=== PATIENT | male | born 1950 | race Caucasian/White ===

== ENCOUNTER 2021-07-22 06:23 | Emergency (ER) | payer MEDICARE, OTHER ==
[2021-07-22 06:31] VITALS: BP 157/91; PULSE 89; RESP 22; TEMP 97.2
[2021-07-22] MEDS ORDERED: HYDROmorphone 1 MG/ML 1 ML SYRINGE IM STA (06:42)
[2021-07-22] MEDS ORDERED: BACITRACIN ZINC 500 UNIT/GM OINT 28.4 GM TUBE TOPICAL ONE (06:42)
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
[2021-07-22] MEDS ORDERED: DIPH,PERTUS(ACELL)TETVAC-LF 0.5 ML VIAL IM ONE (07:00)
== END 2021-07-22 07:20 | disposition home or self-care (01) ==
LOC: EC 06:23
DX: T25.231A Burn of second degree of right toe(s) (nail), initial encounter (principal); T31.0 Burns involving less than 10% of body surface; F17.200 Nicotine dependence, unspecified, uncomplicated; I10 Essential (primary) hypertension; Z88.0 Allergy status to penicillin; X10.0XXA Contact with hot drinks, initial encounter; Y93.89 Activity, other specified
CPT/HCPCS: 90715; 99283; 90471; 16020; 96372; J1170

== ENCOUNTER → 2022-03-29 | Outpatient (CLI) | payer MEDICARE, OTHER ==
--- NOTE | 2022-03-29 09:52 | US ---
EXAMINATION TYPE: US duplex aorta DATE OF EXAM: 03/29/2022 COMPARISON: NONE CLINICAL HISTORY: Z13.6 SCREENING FOR CARDIOVASCULAR DISORDERS. AAA screening TECHNIQUE: Multiple sonographic images of the abdominal aorta are obtained. FINDINGS: EXAM MEASUREMENTS: Abdominal Aorta: Proximal: 2.3 x 2.2 cm Mid: 1.7 x 2.0 cm Distal: 1.9 x 1.7 cm Bifurcation: ROSEANN: 1.2 x 1.2 cm TANISHA: 1.2 x 1.3 cm TRACER LATHE SET UP OPERATOR NOTES: No evidence of AAA IMPRESSION: No evidence of aortic aneurysm.
--- NOTE | 2022-03-29 09:54 | US ---
EXAMINATION TYPE: US kidneys/renal and bladder DATE OF EXAM: 03/29/2022 COMPARISON: NONE CLINICAL HISTORY: R94.4 ABN KIDNEY FUNCTION RESULTS. Abnormal renal function EXAM MEASUREMENTS: Right Kidney: 10.5 x 4.3 x 4.7 cm Left Kidney: 10.8 x 4.8 x 4.5 cm Right Kidney: Lobulated contour, probable cyst mid= 1.3 x 1.1 x 1.3 cm. Hypoechoic structure in the u pper pole measuring 2.2 x 1.8 x 1.8 cm Left Kidney: Lobulated contour, cyst lower pole= 4.2 x 3.3 x 3.7 cm. Hypoechoic structure within the left kidney. 1.7 x 1.5 x 1.7 cm Bladder: wnl Bilateral Jets seen: Only left jet visualized There is no evidence for hydronephrosis at this point in time. No nephrolithiasis is seen. No candida s are identified. The urinary bladder is anechoic. Bilateral ureteral jets are seen. IMPRESSION: 1. Bilateral indeterminate renal lesions which may represent a complex cyst versus solid lesion such as an renal cell carcinoma. Further evaluation with MRI with and without IV contrast is recommended. 2. Somewhat lobulated contour to the kidneys without evidence for hydronephrosis. 3. Scattered cysts.
== END | disposition home or self-care (01) ==
LOC: RADUSWWP 08:46
PROVIDERS: ATTEND Family Medicine
DX: Z13.6 Encounter for screening for cardiovascular disorders (principal); R94.4 Abnormal results of kidney function studies
CPT/HCPCS: 76770; 93979

== ENCOUNTER → 2022-04-28 | Outpatient (CLI) | payer MEDICARE, OTHER ==
--- NOTE | 2022-04-28 12:30 | MR ---
EXAMINATION TYPE: MR abdomen wo/w con DATE OF EXAM: 04/28/2022 COMPARISON: Renal ultrasound March 29, 2022 HISTORY: NEOPLASM OF UNSPECIFIED BEHAVIOR OF KIDNEY CONTRAST: Standard multiplanar, multisequence MRI departmental protocol images were obtained without contrast a nd with 11 mL intravenous Gadavist gadolinium contrast. Imaging performed of the abdomen focusing on the bilateral kidneys. FINDINGS: Kidneys: Cortical thinning in both kidneys present. No hydronephrosis evident bilaterally. MRI confirms thin-walled cyst upper pole right kidney measuring 1.7 cm long axis coronal image 32. MR I confirms partially exophytic lesion posteriorly upper pole right kidney of T1 hyperintensity and T2 hypointensity measuring 2.5 cm long axis without postcontrast enhancement felt to reflect proteinace ous and/or hemorrhagic cyst. Left kidney shows simple-appearing thin-walled 3.0 cm cyst upper to midpole level coronal image 34. T here is additional exophytic 1.5 cm thin-walled cyst medially upper pole level axial image 38. There are at least 3 nonsimple lesions in the left kidney, for reference a round 1.3 cm lesion vocational counselor iorly upper pole left kidney series 6 on image 36 of slight T1 hyperintensity and slight T2 hyperinte nsity without postcontrast enhancement consistent with small proteinaceous or hemorrhagic cyst. There is round slightly exophytic T2 hypointense lesion anteriorly midpole left kidney axial image 26 with T1 hyperintensity and without enhancement consistent with hemorrhagic and/or proteinaceous cyst. Fin ally corresponding to ultrasound there is largest lesion exophytic from the lower pole left kidney me asuring 3.1 cm of slight T1 hyperintensity and slight T1 hypointensity without postcontrast enhanceme nt consistent with additional proteinaceous and/or hemorrhagic cyst. Other: Liver, gallbladder, pancreas, both adrenal glands appear within normal limits. There are scatt ered colonic diverticula. No suspicious small or large bowel dilatation. No AAA. No intra-abdominal a scites. Osseous structures are intact. IMPRESSION: Evidence of chronic medical renal disease bilaterally. Simple appearing thin-walled cysts and additional scattered thin walled hemorrhagic and/or proteinaceous cysts are noted bilaterally. N o suspicious solid or cystic renal masses to suggest renal cell carcinoma.
== END | disposition home or self-care (01) ==
LOC: RADMRIMAIN 07:11
PROVIDERS: ATTEND Family Medicine
DX: N18.9 Chronic kidney disease, unspecified (principal)
CPT/HCPCS: 74183; A9585

== ENCOUNTER 2022-05-25 10:50 | Inpatient (IN) | payer MEDICARE, OTHER ==
[2022-05-25 11:47] LABS: Basophils % (A) 0 %; Eosinophils # (A) 0.2 k/uL (0-0.7); Eosinophils % (A) 2 %; HGB 15.4 gm/dL (13.0-17.5); Lymphocytes # (A) 3.2 k/uL (1.0-4.8); Lymphocytes % (A) 42 %; MCH 31.5 pg (25.0-35.0); MCV 89.9 fL (80.0-100.0); Mean Platelet Volume 7.6; Monocytes # (A) 0.5 k/uL (0-1.0); Monocytes % (A) 7 %; Neutrophils # (A) 3.4 k/uL (1.3-7.7); Neutrophils % (A) 45 %; Platelet Count 370 k/uL (150-450); RBC 4.89 m/uL (4.30-5.90); RDW 12.8 % (11.5-15.5); WBC 7.5 k/uL (3.8-10.6)
[2022-05-25] MEDS ORDERED: SODIUM CHLORIDE 0.9% 1,000 ML IV STA (11:47)
--- NOTE | 2022-05-25 11:48 | ED ---
General Adult HPI - General Chief complaint: Arrhythmia/Palpitations Stated complaint: heart concerns Time Seen by Provider: 05/25/22 11:00 Source: patient Mode of arrival: ambulatory Limitations: no limitations - History of Present Illness Initial comments: Dictation was produced using [employer] dictation software. please excuse any grammatical, word or spelling errors. Chief Complaint: 72-year-old male presents emergency department for new onset A. fib History of Present Illness: 72-year-old male presents emergency department for new onset A. fib. Patient went to get a colonoscopy today. He was accounted by anesthesia who did a EKG and noticed that patient was in atrial fibrillation. Patient denies any history of A. fib or cardiac disease. Patient denies any complaints at this time. The ROS documented in this emergency department record has been reviewed and confirmed by me. Those systems with pertinent positive or negative responses have been documented in the HPI. All other systems are other negative and/or noncontributory. PHYSICAL EXAM: General Impression: Alert and oriented x3, not in acute distress HEENT: Normocephalic atraumatic, extra-ocular movements intact, pupils equal and reactive to light bilaterally, mucous membranes moist. Cardiovascular: Irregularly irregular Chest: Able to complete full sentences, no retractions, no tachypnea Abdomen: abdomen soft, non-tender, non-distended, no organomegaly Musculoskeletal: Pulses present and equal in all extremities, no peripheral edema Motor: no focal deficits noted Neurological: CN II-XII grossly intact, no focal motor or sensory deficits noted Skin: Intact with no visualized rashes Psych: Normal affect and mood ED course: 72-year-old male presents emergency department for new onset atrial fibrillation. Vital signs upon arrival shows heart rate of 120, blood pressure sightly decreased at 97/52.. Physical examination is benign. Patient is well- appearing. He does have irregular heart rate. Nursing notes and chart review was performed Laboratory evaluation obtained. CBC unremarkable. Coag panel E. Metabolic panel shows findings within acceptable limits. Mild acidosis mild acute kidney injury treated with hydration. Chest x-ray is unremarkable. Patient observed in emergency department for 2 hours. Blood pressure still persistent tachycardic started on Cardizem and heparin. Patient will be admitted to [facility] with consultation to cardiology. My EKG interpretation: Ventricular rate 129, A. fib with RVR, QRS 95, QTC 392. No WA prolongation, no QTC prolongation, no ST or T-wave changes noted. Critical Care: yes Critical Care time: 33 minutes - Related Data Allergies Allergy/AdvReac Type Severity Reaction Status Date / Time Penicillins Allergy Unknown Verified 05/25/22 10:56 Childhood Review of Systems ROS Statement: Those systems with pertinent positive or pertinent negative responses have been documented in the HPI. ROS Other: All systems not noted in ROS Statement are negative. Past Medical History Past Medical History: Atrial Fibrillation, Hyperlipidemia, Hypertension Additional Past Medical History / Comment(s): a-fib found 05/25/22. History of Any Multi-Drug Resistant Organisms: None Reported Past Surgical History: Joint Replacement, Orthopedic Surgery Past Psychological History: No Psychological Hx Reported Smoking Status: Current every day smoker Past Alcohol Use History: Occasional Past Drug Use History: None Reported General Exam Limitations: no limitations Course Vital Signs 05/25/22 10:51 Temperature 98 F Pulse Rate 120 H Respiratory 18 Rate Blood Pressure 97/52 O2 Sat by Pulse 96 Oximetry Medical Decision Making - Lab Data Result diagrams: 05/25/22 11:18 05/25/22 11:18 Lab Results 05/25/22 05/25/22 05/25/22 Range/Units 11:18 11:18 11:18 WBC 7.5 (3.8-10.6) k/uL RBC 4.89 (4.30-5.90) m/uL Hgb 15.4 (13.0-17.5) gm/dL Hct 44.0 (39.0-53.0) % MCV 89.9 (80.0-100.0) fL MCH 31.5 (25.0-35.0) pg MCHC 35.0 (31.0-37.0) g/dL RDW 12.8 (11.5-15.5) % Plt Count 370 (150-450) k/uL MPV 7.6 Neutrophils % 45 % Lymphocytes % 42 % Monocytes % 7 % Eosinophils % 2 % Basophils % 0 % Neutrophils # 3.4 (1.3-7.7) k/uL Lymphocytes # 3.2 (1.0-4.8) k/uL Monocytes # 0.5 (0-1.0) k/uL Eosinophils # 0.2 (0-0.7) k/uL Basophils # 0.0 (0-0.2) k/uL PT 10.6 (9.0-12.0) sec INR 1.0 (<1.2) APTT 23.5 (22.0-30.0) sec Sodium 143 (137-145) mmol/L Potassium 4.1 (3.5-5.1) mmol/L Chloride 111 H (98-107) mmol/L Carbon Dioxide 18 L (22-30) mmol/L Anion Gap 14 mmol/L BUN 33 H (9-20) mg/dL Creatinine 1.60 H (0.66-1.25) mg/dL Est GFR (CKD-EPI)AfAm 50 (>60 ml/min/1.73 sqM) Est GFR (CKD-EPI)NonAf 43 (>60 ml/min/1.73 sqM) Glucose 117 H (74-99) mg/dL Calcium 9.8 (8.4-10.2) mg/dL Total Bilirubin 0.8 (0.2-1.3) mg/dL AST 25 (17-59) U/L ALT 21 (4-49) U/L Alkaline Phosphatase 33 L (38-126) U/L Troponin I (0.000-0.034) ng/mL Total Protein 6.8 (6.3-8.2) g/dL Albumin 4.4 (3.5-5.0) g/dL 05/25/22 Range/Units 11:18 WBC (3.8-10.6) k/uL RBC (4.30-5.90) m/uL Hgb (13.0-17.5) gm/dL Hct (39.0-53.0) % MCV (80.0-100.0) fL MCH (25.0-35.0) pg MCHC (31.0-37.0) g/dL RDW (11.5-15.5) % Plt Count (150-450) k/uL MPV Neutrophils % % Lymphocytes % % Monocytes % % Eosinophils % % Basophils % % Neutrophils # (1.3-7.7) k/uL Lymphocytes # (1.0-4.8) k/uL Monocytes # (0-1.0) k/uL Eosinophils # (0-0.7) k/uL Basophils # (0-0.2) k/uL PT (9.0-12.0) sec INR (<1.2) APTT (22.0-30.0) sec Sodium (137-145) mmol/L Potassium (3.5-5.1) mmol/L Chloride (98-107) mmol/L Carbon Dioxide (22-30) mmol/L Anion Gap mmol/L BUN (9-20) mg/dL Creatinine (0.66-1.25) mg/dL Est GFR (CKD-EPI)AfAm (>60 ml/min/1.73 sqM) Est GFR (CKD-EPI)NonAf (>60 ml/min/1.73 sqM) Glucose (74-99) mg/dL Calcium (8.4-10.2) mg/dL Total Bilirubin (0.2-1.3) mg/dL AST (17-59) U/L ALT (4-49) U/L Alkaline Phosphatase (38-126) U/L Troponin I <0.012 (0.000-0.034) ng/mL Total Protein (6.3-8.2) g/dL Albumin (3.5-5.0) g/dL Disposition Clinical Impression: New onset a-fib Disposition: ADMITTED IP TO THIS [facility] Condition: Serious Referrals: Mitra Albrecht DO [Primary Care Provider] - 1-2 days Decision Time: 12:52
[2022-05-25 12:05] LABS: Partial Thromboplastin Time 23.5 sec (22.0-30.0); Prothrombin Time 10.6 sec (9.0-12.0)
[2022-05-25 12:07] LABS: Albumin 4.4 g/dL (3.5-5.0); Calcium 9.8 mg/dL (8.4-10.2); Potassium 4.1 mmol/L (3.5-5.1); Total Bilirubin 0.8 mg/dL (0.2-1.3); Total Protein 6.8 g/dL (6.3-8.2)
--- NOTE | 2022-05-25 12:13 | XR ---
EXAMINATION TYPE: XR chest 2V DATE OF EXAM: 05/25/2022 COMPARISON: NONE HISTORY: Shortness of breath TECHNIQUE: Frontal and lateral views of the chest are obtained. FINDINGS: Scattered senescent parenchymal changes noted. No evidence for infiltrate. No evidence for atelectasis. Heart size is stable. Mediastinal structures are stable and grossly unremarkable. No evidence for hilar prominence. Degenerative changes dorsal spine. IMPRESSION: 1. No evidence for acute pulmonary disease.
[2022-05-25] MEDS ORDERED: HEPARIN SODIUM 1,000 UN/ML (10ML VL) IV PRN (12:47)
[2022-05-25] MEDS ORDERED: HEPARIN SODIUM 1,000 UN/ML (10ML VL) IV ONE (12:47)
[2022-05-25] MEDS ORDERED: NALOXONE 0.4 MG/ML 1 ML VIAL IV PRN (12:53)
[2022-05-25] MEDS ORDERED: DILTIAZEM 125 MG in SODIUM CHLORIDE 0.9% 100 ML IV SCH (13:00)
[2022-05-25] MEDS: HEPARIN SOD,PORK IN 0.45% NACL 25,000 UNIT in 0.45% NACL 1 250ML.BAG IV SCH (13:33)
[2022-05-25] MEDS: LISINOPRIL-HCTZ 20-25 MG 1 EACH TAB PO SCH (16:25)
--- NOTE | 2022-05-26 01:29 | HP ---
HISTORY AND PHYSICAL CHIEF COMPLAINT: Atrial fibrillation. HISTORY OF PRESENT ILLNESS: This is a 72-year-old gentleman with a past medical history of hyperlipidemia, hypertension, atrial fibrillation, went for a preop check for colonoscopy, atrial ablation noted and the patient was sent to [facility] for further evaluation and treatment. There is no history of any fever, rigors, or chills at this time. No history of palpitation. PAST MEDICAL HISTORY: Hypertension, hyperlipidemia, atrial fibrillation per chart. The rest of the chart and history reviewed. HOME MEDICATIONS: Reviewed include Crestor, dose and rest of medications reviewed. ALLERGIES: Penicillin. FAMILY HISTORY: No history of heart disease or strokes in the family. SOCIAL HISTORY: Previous history of smoking. Occasional alcohol intake. REVIEW OF SYSTEMS: Fourteen-point review of systems negative except as mentioned earlier. PHYSICAL EXAMINATION: VITAL SIGNS: Pulse is 114, irregular. Blood pressure 140/81, respirations 18. HEENT: Conjunctivae normal. NECK: No JVD. CARDIOVASCULAR: S1, S2 irregular. RESPIRATIONS: Breath sounds diminished at the bases. No rhonchi. ABDOMEN: Soft, nontender. LEGS: No edema. NERVOUS SYSTEM: No focal deficits. LABS: Creatinine 1.60. The rest of the labs noted. ASSESSMENT: 1. Atrial fibrillation with fast ventricular rate. 2. Hypertension. 3. Hyperlipidemia. 4. Chronic kidney disease, stage 3. RECOMMENDATIONS AND DISCUSSION: This is a 72-year-old gentleman presented with multiple complex medical issues, we will monitor the patient closely. Continue the current management and symptomatic treatment. Start on IV heparin and Cardizem drip. Cardiology consultation, 2D echo with Doppler. Resume the home medications once they are confirmed. Prognosis guarded because of multiple complex medical issues. Further recommendations to follow. MMODL / IJN: [id number] /
[2022-05-26 04:29] LABS: Calcium 9.6 mg/dL (8.4-10.2); Potassium 4.6 mmol/L (3.5-5.1); Total Bilirubin 0.3 mg/dL (0.2-1.3); Total Protein 6.3 g/dL (6.3-8.2)
[2022-05-26 05:09] LABS: Basophils % (A) 1 %; Eosinophils # (A) 0.3 k/uL (0-0.7); Eosinophils % (A) 4 %; HCT 43.6 % (39.0-53.0); HGB 14.6 gm/dL (13.0-17.5); Lymphocytes # (A) 3.2 k/uL (1.0-4.8); Lymphocytes % (A) 43 %; MCH 31.4 pg (25.0-35.0); MCHC 33.4 g/dL (31.0-37.0); MCV 93.9 fL (80.0-100.0); Mean Platelet Volume 7.7; Monocytes # (A) 0.5 k/uL (0-1.0); Monocytes % (A) 7 %; Neutrophils # (A) 3.1 k/uL (1.3-7.7); Neutrophils % (A) 42 %; Platelet Count 287 k/uL (150-450); RBC 4.64 m/uL (4.30-5.90); RDW 12.8 % (11.5-15.5); WBC 7.5 k/uL (3.8-10.6)
[2022-05-26] MEDS: LISINOPRIL-HCTZ 20-25 MG 1 EACH TAB PO SCH (08:45)
[2022-05-26] MEDS: HEPARIN SOD,PORK IN 0.45% NACL 25,000 UNIT in 0.45% NACL 1 250ML.BAG IV SCH (08:45)
[2022-05-26 08:52] VITALS: BP 125/79; PULSE 89; RESP 18; TEMP 97
[2022-05-26] MEDS ORDERED: LORATADINE 10 MG TAB PO SCH (09:00)
[2022-05-26] MEDS ORDERED: ATORVASTATIN 80 MG TAB PO SCH (09:00)
[2022-05-26] MEDS ORDERED: NON FORMULARY DRUG (Fish Oil/Dha/Epa [Fish Oil 1,200 Mg Fish Oil] 1 EACH Capsule) PO SCH (09:00)
[2022-05-26] MEDS ORDERED: MULTIVITAMINS, THERA 1 EACH TAB PO SCH (09:00)
--- NOTE | 2022-05-26 12:13 | CA ---
Transthoracic Echo Report Name: Jerald Mccollum Age: 72 Gender: M : 1950 Exam Date: 05/26/2022 07:39 Exam Location: [facility] Ht (in): 67 Wt (lb): 220 Ordering Physician: Frank Arnold MD Attending/Referring Phys: Pharmacy Consultant Sabina Colon RDCS Procedure CPT: Indications: afib Cardiac Hx: Technical Quality: Contrast 1: Total Dose (mL): Contrast 2: Total Dose (mL): MEASUREMENTS (Male / Female) Normal Values 2D ECHO LV Diastolic Diameter PLAX 4.7 cm 4.2 - 5.9 / 3.9 - 5.3 cm LV Systolic Diameter PLAX 3.7 cm IVS Diastolic Thickness 1.1 cm 0.6 - 1.0 / 0.6 - 0.9 cm LVPW Diastolic Thickness 1.3 cm 0.6 - 1.0 / 0.6 - 0.9 cm LV Relative Wall Thickness 0.5 RV Internal Dim ED PLAX 3.9 cm LA Systolic Diameter LX 3.6 cm 3.0 - 4.0 / 2.7 - 3.8 cm M-MODE Aortic Root Diameter MM 3.5 cm MV E Point Septal Separation 0.5 cm AV Cusp Separation MM 2.2 cm DOPPLER AV Peak Velocity 123.2 cm/s AV Peak Gradient 6.1 mmHg MV Area PHT 3.9 cm??? MV Deceleration Time 147.8 ms TR Peak Velocity 206.0 cm/s TR Peak Gradient 17.0 mmHg Right Ventricular Systolic Press 22.0 mmHg FINDINGS Left Ventricle Mildly increased septal wall thickness. Left ventricular ejection fraction is estimated at 55%. Left ventricular cavity size normal. Right Ventricle Normal right ventricular size and function. Right Atrium Normal right atrial size. Left Atrium Normal left atrial size. Mitral Valve Structurally normal mitral valve. Mild mitral regurgitation. Aortic Valve Trileaflet aortic valve. Tricuspid Valve Structurally normal tricuspid valve. Mild tricuspid regurgitation. Pulmonic Valve Structurally normal pulmonic valve. Pericardium Trace pericardial effusion Aorta Normal size aortic root and proximal ascending aorta. CONCLUSIONS Normal left ventricular size and systolic function. Mild concentric LVH. Mild mitral and tricuspid insufficiency. Trivial pericardial effusion Previewed by: Dr. Erinn Lopez MD (Electronically Signed) Final Date: 26 May 2022 12:12
[2022-05-26] MEDS ORDERED: APIXABAN 5 MG TAB PO SCH (12:30)
[2022-05-26] MEDS ORDERED: METOPROLOL SUCCINATE (ER) 50 MG TAB.ER.24H PO SCH (12:30)
--- NOTE | 2022-05-26 14:05 | CONS ---
CONSULTATION CHIEF COMPLAINT: Atrial fibrillation. HISTORY OF PRESENT ILLNESS: This is a 72-year-old gentleman with history of hypertension, dyslipidemia, who is admitted to hospital from [facility] following his presentation there for a colonoscopy and was found to be in atrial fibrillation with poorly controlled ventricular rate. He was sent to the emergency room, where he was started on Cardizem and heparin, and is admitted to hospital for the same. At the time of my evaluation this morning, the patient appears comfortable at rest, heart rate is well controlled, hemodynamically stable and remains on IV Cardizem and heparin. He does not have chest pain or difficulty breathing. There is no prior history of coronary artery disease or congestive heart failure. There is no history of valvular heart disease. PAST MEDICAL HISTORY: Significant for hypertension. CURRENT MEDICATIONS: Include Zestoretic and Crestor. ALLERGIES: To penicillin. FAMILY HISTORY: Negative for premature coronary artery disease. SOCIAL HISTORY: Negative for smoking, EtOH abuse, or drug abuse. REVIEW OF SYSTEMS: HEENT: Unremarkable. CARDIAC: As described above. RESPIRATORY: As described above. GI: Negative. GENITOURINARY: Negative. ALLERGY/IMMUNOLOGY: Negative. SKIN: Negative. MUSCULOSKELETAL: Significant for arthritis. PSYCHOSOCIAL: Negative. DERM: Negative. CONSTITUTIONAL: Negative. ONCOLOGICAL: Negative. MANAGER LAB: Negative. Rest of the system review is not relevant. PHYSICAL EXAMINATION: GENERAL: Comfortable at rest. VITAL SIGNS: Stable. NECK: There is no jugular venous distention. Carotid upstroke is normal. There is no bruit. CHEST: Reveals good air entry bilaterally. HEART: Reveals first and second heart sounds. No gallop. No murmur. ABDOMEN: Soft. EXTREMITIES: Did not reveal any edema. Peripheral pulses are felt. LABORATORY DATA: Labs show a hemoglobin of 14.6, platelet count is 287. Potassium is 4.6, BUN and creatinine are elevated at 38 and 1.7. ASSESSMENT: Persistent atrial fibrillation. PLAN: I am going to stop the Cardizem and start the patient on Toprol-XL 50 mg daily, which should take care of both his hypertension and atrial fibrillation. Stop the Zestoretic as he has intravascular volume depletion, we will start him on lisinopril instead. We will review his echocardiogram and we should be able to discharge him home on Eliquis 5 b.i.d. MMODL / IJN: [id number] /
[2022-05-27] MEDS ORDERED: lisinopriL 10 MG TAB PO SCH (09:00)
== END 2022-05-26 17:09 | disposition home or self-care (01) | DRG 309 ==
LOC: EC 10:50 → 3SCARD 12:53
PROVIDERS: ADMIT Internal Medicine; ATTEND Internal Medicine
DX: I48.19 Other persistent atrial fibrillation (principal); E87.20 Acidosis, unspecified; N17.9 Acute kidney failure, unspecified; I12.9 Hypertensive chronic kidney disease with stage 1 through stage 4 chronic kidney disease, or unspecified chronic kidney disease; N18.30 Chronic kidney disease, stage 3 unspecified; F17.210 Nicotine dependence, cigarettes, uncomplicated; E78.5 Hyperlipidemia, unspecified; I08.1 Rheumatic disorders of both mitral and tricuspid valves; R00.0 Tachycardia, unspecified; Z28.310 Unvaccinated for COVID-19; Z88.0 Allergy status to penicillin
CPT/HCPCS: 36415; 71046; 80053; 84484; 85025; 85610; 85730; 93005; 93306; 96361; 96365; 96366; 96375; 99291

== ENCOUNTER → 2022-06-20 | Outpatient (CLI) | payer MEDICARE, OTHER ==
--- NOTE | 2022-06-20 10:34 | US ---
EXAMINATION TYPE: US kidneys/renal and bladder DATE OF EXAM: 06/20/2022 COMPARISON: MRI 04/28/2022 and ultrasound 03/29/2022 CLINICAL HISTORY: 72-year-old male N18.30 CKD STAGE 3 UNSP. TECHNIQUE: Multiple sonographic images of the kidneys and bladder are obtained. FINDINGS: EXAM MEASUREMENTS: Right Kidney: 10.6 x 4.4 x 3.7 cm Left Kidney: 11.1 x 4.5 x 3.9 cm No hydronephrosis on either side. Right Kidney: Multicystic, largest cyst upper pole= 2.5 x 2.4 x 1.9 cm Left Kidney: Multicystic, largest cyst lower pole= 3.8 x 3.4 x 3.7 cm Bladder: Under distention limits its evaluation. Bilateral Jets seen: Only left jet visualized IMPRESSION: No hydronephrosis identified. Numerous bilateral renal cysts measuring up to 3.8 cm on the left and 2 .5 cm on the right. Given the varying degrees of internal complication on the patient's 04/28/2022 MRI , consider an annual surveillance follow-up MRI.
== END | disposition home or self-care (01) ==
LOC: RADUSWWP 07:56
PROVIDERS: ATTEND Family Medicine
DX: N28.1 Cyst of kidney, acquired (principal); N18.30 Chronic kidney disease, stage 3 unspecified
CPT/HCPCS: 76770

== ENCOUNTER → 2022-06-21 | Day surgery (SDC) | payer MEDICARE, OTHER ==
[~2022-06-21] MED LIST: BENZOCAINE SPRAY 1 CAN TOPICAL ONE; LIDOCAINE 2% INJ 20 MG/ML (2 ML VIAL) ONE; PROPOFOL 10 MG/ML 20 ML VIAL IV ONE; SODIUM CHLORIDE 0.9% 1,000 ML IV SCH
[2022-06-21 06:58] VITALS: TEMP 98.3
[2022-06-21 07:29] VITALS: RESP 16
--- NOTE | 2022-06-21 08:20 | ECHOT ---
TRANSESOPHAGEAL ECHOCARDIOGRAM INDICATIONS: Persistent atrial fibrillation to rule out intracardiac thrombus prior to cardioversion. PROCEDURE NOTE: After obtaining informed consent, transesophageal echocardiogram was performed in left lateral position using an Omniplane probe. Local and IV sedation were obtained by the horticultural services supervisor. The patient tolerated the procedure well without any obvious immediate complications. FINDINGS: 1. There is no intracardiac thrombus within the left atrial appendage, left atrium, right atrium, right ventricle. 2. Left ventricle has normal size and systolic function. 3. Interatrial septum, there is no evidence of itrx-bi-ecmao shunt by color-flow Doppler or [id number] shunt by agitated saline contrast study. 4. Mitral valve shows mild mitral regurgitation. 5. Aortic valve is a 3-leaflet valve. There is no evidence of aortic stenosis or regurgitation. 6. There is mild tricuspid regurgitation noted. Aorta measures within normal limits. CONCLUSION: No intracardiac thrombus. PLAN: The patient will proceed with cardioversion. MMODL / IJN: [id number] /
--- NOTE | 2022-06-21 08:33 | PCN ---
PROCEDURE NOTE Cardioversion Note. INDICATIONS: Persistent atrial fibrillation after making sure that the patient is adequately anticoagulated with Eliquis ruling out an intracardiac thrombus with TOVA. The patient underwent electrical cardioversion using 200 joules of synchronized DC current, patient had to be shocked 3 times and converted to sinus in the 3rd shock. We will continue the Eliquis. DARIA / THERESA: [id number] /
[2022-06-21 09:12] VITALS: BP 137/80; PULSE 67
== END ==
LOC: CATHCVL 06:26
PROVIDERS: ATTEND Internal Medicine Cardiovascular Disease
DX: I48.11 Longstanding persistent atrial fibrillation (principal)
CPT/HCPCS: 93312; 93320; 93325; 92960; J2704; J2001

== ENCOUNTER → 2022-09-11 | Outpatient (CLI) | payer MEDICARE, OTHER ==
--- NOTE | 2022-09-13 08:16 | US ---
EXAMINATION TYPE: US extremity nonvasc mass LT DATE OF EXAM: 09/11/2022 COMPARISON: NONE CLINICAL HISTORY: R22.32 SWELLING, MASS AND LUMP IN SHOULDER. Scanned left upper back shoulder area o f lump. TECHNIQUE: FINDINGS: Scanned left upper back shoulder area of lump. Ill defined hypoechoic area seen. Normal dermal layer is seen. There is normal subcutaneous tissue and deeper muscle fibers. No obvious solid or cystic mass or fluid collection is present on images saved. IMPRESSION: As above. If concern for palpable mass persists further investigation with CT and/or MRI may be warranted.
== END | disposition home or self-care (01) ==
LOC: RADUSWWP 15:10
PROVIDERS: ATTEND Family Medicine
DX: R22.32 Localized swelling, mass and lump, left upper limb (principal)

== ENCOUNTER → 2023-01-24 | Day surgery (SDC) | payer MEDICARE, OTHER ==
[2023-01-12 09:41] VITALS: BMI 35.2
[~2023-01-24] MED LIST changes: -BENZOCAINE SPRAY 1 CAN TOPICAL ONE; +LACTATED RINGERS 1,000 ML IV SCH; +LIDOCAINE 1% (10MG/ML) FOR IV START INTRADERMA PRN; -LIDOCAINE 2% INJ 20 MG/ML (2 ML VIAL) ONE; -SODIUM CHLORIDE 0.9% 1,000 ML IV SCH
[2023-01-24 11:22] VITALS: TEMP 98.6
[2023-01-24 11:35] LABS: Glucose,Whole Blood 106 mg/dL (70-110)
--- NOTE | 2023-01-24 13:03 | P.PCN ---
Date of Procedure: 01/24/23 Procedure(s) Performed: BRIEF HISTORY: Patient is a 72-year-old pleasant white male scheduled for an elective colonoscopy as a part of evaluation of prior history of colon polyps. Last colonoscopy was 5 years ago. PROCEDURE PERFORMED: Colonoscopy with snare polypectomy. PREOPERATIVE DIAGNOSIS: History of colon polyps. IV sedation per Anesthesia. PROCEDURE: After informed consent was obtained, the patient, was brought into the endoscopy unit. IV sedation was administered by Anesthesia under continuous monitoring. Digital rectal examination was normal. Initially the Olympus CF-160 flexible video colonoscope was then inserted in the rectum, gradually advanced into the cecum without any difficulty. Careful examination was performed as the scope was gradually being withdrawn. Ileocecal valve and the appendiceal orifice were visualized and appeared normal. Prep was excellent. Mucosa of the cecum appeared normal. Ascending colon there was a 5 mm sessile polyp removed by cold snare polypectomy. Rest of the, ascending colon, transverse colon, descending colon, sigmoid colon, and rectum appeared normal. Scattered sigmoid diverticulosis. Retroflexion was performed in the rectum and no lesions were seen. The patient tolerated the procedure well. IMPRESSION: 5 mm sessile ascending colon polyp status post cold snare polypectomy Scattered sigmoid diverticulosis RECOMMENDATIONS: Findings of this examination were discussed with the patient as well as his family.. He was advised to follow with the biopsy results. If the biopsy reveals adenoma he can have a repeat colonoscopy in 5 years.
[2023-01-24 13:11] VITALS: RESP 16
[2023-01-24 13:30] VITALS: BP 127/83; PULSE 70
== END ==
LOC: ORWHC2ENDO 11:04
PROVIDERS: ATTEND Internal Medicine Gastroenterology
DX: Z12.11 Encounter for screening for malignant neoplasm of colon (principal); D12.2 Benign neoplasm of ascending colon; I48.91 Unspecified atrial fibrillation; I10 Essential (primary) hypertension; E78.5 Hyperlipidemia, unspecified; Z86.010 Personal history of colon polyps; Z88.0 Allergy status to penicillin; Z79.899 Other long term (current) drug therapy
CPT/HCPCS: 88305; 45385; J2704